=== PATIENT | male | born 1990 | race Caucasian/White ===

== ENCOUNTER → 2022-06-11 | Outpatient (CLI) | payer OTHER | LOC: M PLAIMG 13:10 | PROVIDERS: ATTEND General Practice | DX: R07.89 Other chest pain (principal); M25.511 Pain in right shoulder; M25.512 Pain in left shoulder; M25.531 Pain in right wrist; M25.532 Pain in left wrist; M25.561 Pain in right knee; M25.562 Pain in left knee ==

== ENCOUNTER → 2022-08-16 | Outpatient (CLI) | payer OTHER | LOC: M SLEEP HO 08-15 11:00 | PROVIDERS: ATTEND Internal Medicine Cardiovascular Disease | DX: R06.83 Snoring (principal) ==

== ENCOUNTER → 2022-09-17 | Outpatient (CLI) | payer OTHER | LOC: M PLAIMG 10:16 | PROVIDERS: ATTEND Physician Assistant | DX: R06.00 Dyspnea, unspecified (principal) ==

== ENCOUNTER → 2022-10-18 | Outpatient (CLI) | payer OTHER ==
[~2022-10-18] MED LIST: METHACHOLINE KIT INH ONE
== END ==
LOC: M CARPUL 09:33
PROVIDERS: ATTEND Physician Assistant
DX: R06.00 Dyspnea, unspecified (principal)
CPT/HCPCS: 94070; J7674

== ENCOUNTER → 2022-11-28 | Outpatient (CLI) | payer OTHER | LOC: M PLAIMG 14:51 | PROVIDERS: ATTEND Orthopaedic Surgery | DX: M47.26 Other spondylosis with radiculopathy, lumbar region (principal); M54.50 Low back pain, unspecified ==